=== PATIENT | male | born 1965 | race Caucasian/White ===

== ENCOUNTER 2021-11-30 15:25 | Emergency (ER) | payer OTHER, SELFPAY ==
--- NOTE | 2021-11-30 15:30 | ED.SKABFB ---
HPI - Skin/Abscess/Foreign Bdy General Chief complaint: Skin/Abscess/Foreign Body Stated complaint: Rash Time Seen by Provider: 11/30/21 15:35 Source: patient and RN notes reviewed Mode of arrival: ambulatory Limitations: no limitations History of Present Illness HPI narrative: 56-year-old male presents to the [facility] with rash to the bilateral axillas and lower forearms. Also rash to the left cheek area. States that his arm started approximately 1 and half weeks ago, has recently moved to his face and was getting concerned. Has not applied anything to his rash. No treatment prior to arrival. States the day before this all started he was clearing a friend's property which has poison barbi and poison oak and poison sumac. Describes it as very itchy. Denies any past medical or surgical history MD complaint: rash Related Data Home Medications Medication Instructions Recorded Confirmed No Home Medications 11/30/21 11/30/21 Allergies Allergy/AdvReac Type Severity Reaction Status Date / Time No Known Allergies Allergy Verified 11/30/21 15:45 Review of Systems Review of Systems: All systems reviewed & are unremarkable except as noted in HPI and below Constitutional: Constitutional: Reports no additional constitutional complaints, Denies chills, Denies fever(s), Denies headache(s) and Denies weakness Eyes: Eyes: Reports no additional eye complaints and Denies change in vision ENT: Reports system reviewed and no additional complaints, except as documented, Denies dysphagia, Denies dizziness, Denies headache(s), Denies nasal congestion and Denies sore throat Cardiovascular: Cardiovascular: Reports no additional cardiovascular complaints, Denies chest pain, Denies syncope and Denies dyspnea Respiratory: Respiratory: Reports no additional respiratory complaints, Denies chest congestion, Denies cough, Denies dyspnea and Denies wheezing Gastrointestinal: Gastrointestinal: Denies dysphagia Musculoskeletal: Musculoskeletal: Reports no additional musculoskeletal complaints and Denies numbness Integumentary/Breasts: Skin/Breast: Reports as per HPI and Reports rash (Bilateral arms, right cheek) Neurologic: Reports system reviewed and no additional complaints, except as documented, Denies dizziness, Denies syncope, Denies headache(s), Denies focal weakness, Denies numbness and Denies weakness Psychiatric: Psychiatric: Reports no additional psychiatric complaints Allergic/Immunologic: Allergic/Immunologic: Reports no additional allergic/immunologic complaints and Denies wheezing PMFSH Past Medical History Medical History Patient denies medical problems Surgical History Surgical History (Updated 11/30/21 @ 19:43 by Orquidea Jacques APRN) No pertinent past surgical history Social History Social History (Updated 11/30/21 @ 19:44 by Orquidea Jacques APRN) Gender identity (if verbalized by the patient): Male Comments At the time of my signature, I reviewed and agree with the nursing past medical, surgical, social, and family history. There is no relevant family history pertinent to the patient complaint. Exam Const: General: healthy appearing, no acute distress, alert, poor hygiene and uncomfortable Nutritional Appearance: well nourished Orientation/consciousness: patient oriented x3 Limitations: no limitations HENMT: Head: normal to inspection Ears: external ears normal and TM's normal bilaterally Face and sinus: normal facial exam Other: Small red raised rash without increased warmth linear to the right cheek, no eye involvement. Erythema bilateral antecubital. Multiple raised, scabbed areas to the bilateral forearms, different stages of healing. Eyes: Conjunctivae: conjunctivae normal Pupils: Equal, round and reactive pupils present Neck: Neck: normal visual inspection, no lymphadenopathy and no meningeal signs Chest: Chest palpation & inspection: norm
[2021-11-30 15:34] VITALS: BP 148/98; PULSE 84; RESP 20; TEMP 37.4; O2SAT 100
[2021-11-30 15:35] VITALS: PULSE 84; RESP 20; TEMP 37.4; O2SAT 100
== END 2021-11-30 15:50 | disposition home or self-care (01) ==
PROVIDERS: Emergency Provider Nurse Practitioner
DX: L25.9 Unspecified contact dermatitis, unspecified cause (principal)
CPT/HCPCS: 99213; G0463